=== PATIENT | male | born 1975 | race Two or more races ===

== ENCOUNTER 2023-04-07 14:31 | Inpatient (IN) | payer BC ==
[2023-04-07 16:36] VITALS: BMI 25.0
[2023-04-07] MEDS ORDERED: MAGNESIUM HYDROX 2400MG/30ML ORAL SUSPENSION 30 ML CUP PO PRN (18:30)
[2023-04-07] MEDS ORDERED: BENZONATATE 200 MG CAPSULE PO PRN (18:30)
[2023-04-07] MEDS ORDERED: BENZOCAINE/MENTHOL (CHLORASEPTIC ) LOZENGE MM PRN (18:30)
[2023-04-07] MEDS ORDERED: P-EPHED 60MG/TRIPROLIDI 2.5MG TABLET PO PRN (18:30)
[2023-04-07] MEDS ORDERED: MAG HYDROX/AL HYDROX/SIMETH 30 ML UNIT-DOSE CUP PO PRN (18:30)
[2023-04-07] MEDS ORDERED: AMMONIUM LACTATE 12% LOTION 225 GM BOTTLE TP PRN (18:30)
[2023-04-07] MEDS ORDERED: IBUPROFEN 400 MG TABLET (FP) PO PRN (18:30)
[2023-04-07] MEDS ORDERED: LOPERAMIDE HCL 2 MG CAPSULE PO PRN (18:30)
[2023-04-07] MEDS ORDERED: POLYETHYLENE GLYCOL (HEALTHYLAX) 3350 17 GM PACKET PO PRN (18:30)
[2023-04-07] MEDS ORDERED: IBUPROFEN 600 MG TABLET (FP) PO PRN (18:30)
[2023-04-07] MEDS ORDERED: hydrOXYzine PAMOATE 25 MG CAPSULE (FP) PO PRN (18:30)
[2023-04-07] MEDS ORDERED: guaiFENesin 600 MG TABLET.ER (FP) PO PRN (18:30)
[2023-04-07] MEDS ORDERED: COLLOIDAL OATMEAL 1 BAR EACH TP PRN (18:30)
[2023-04-07] MEDS ORDERED: ACETAMINOPHEN 325 MG TABLET (FP) PO PRN (18:30)
[2023-04-07] MEDS ORDERED: TUBERCULIN PPD 5 TU/0.1ML SYRINGE (IN PATIENT USE ONLY) ID ONE (19:45)
[2023-04-07] MEDS ORDERED: TUBERCULIN PPD 5 TU/0.1ML VIAL ID ONE (20:39)
[2023-04-07] MEDS: NICOTINE 10 MG CARTRIDGE (INHALER) IH PRN (21:34)
[2023-04-07] MEDS: THIAMINE HCL 100 MG TABLET (FP) PO SCH (21:34)
[2023-04-07] MEDS: MELATONIN 5 MG TABLETS PO SCH (21:34)
[2023-04-07] MEDS: LIDOCAINE PATCH REMOVAL MC SCH (21:36)
[2023-04-08] MEDS: LIDOCAINE 5% TOPICAL PATCH TP SCH (09:28)
[2023-04-08] MEDS: PRENATAL VITAMINS W/ FOLIC ACID TABLET (FP) PO SCH (09:28)
[2023-04-08] MEDS: NICOTINE 10 MG CARTRIDGE (INHALER) IH PRN ×2 (09:29→19:33)
[2023-04-08 11:31] LABS: POTASSIUM 4.5 mmol/L (3.5-5.1)
[2023-04-08 11:32] LABS: HEMATOCRIT 42.1 % (35.4-49); HEMOGLOBIN 14.2 GM/dL (11.7-16.9); MCH 29.8 pg (25.7-33.7); MCHC 33.6 g/dl (32.0-35.9); MEAN CELL VOLUME 88.7 fl (80-96); MEAN PLT VOLUME 7.4 fl (7.5-11.1); PLATELET COUNT 299 10^3/uL (134-434); RBC 4.75 M/mm3 (4.00-5.60); RDW 13.9 % (11.9-15.9); WHITE BLOOD COUNT 6.4 K/mm3 (4.0-10.0)
[2023-04-08 11:33] LABS: ALBUMIN 3.8 g/dl (3.4-5.0); BLOOD UREA NITROGEN 14.9 mg/dL (7-18); CALCIUM 9.1 mg/dL (8.5-10.1)
[2023-04-08 11:36] LABS: CREATININE 1.3 mg/dL (0.55-1.3)
[2023-04-08 11:37] LABS: PH,URINE 5.5 (5.0-8.0); URINE APPEARANCE CLEAR; URINE BILIRUBIN NEGATIVE (NEGATIVE); URINE COLOR YELLOW; URINE GLUCOSE (UA) NEGATIVE (NEGATIVE); URINE KETONE NEGATIVE (NEGATIVE); URINE LEUK ESTERASE NEGATIVE (NEGATIVE); URINE NITRITE NEGATIVE (NEGATIVE); URINE PROTEIN NEGATIVE (NEGATIVE); URINE UROBILINOGEN 0.2 mg/dL (0.2-1.0)
[2023-04-08 11:38] LABS: BILIRUBIN,TOTAL 1.2 mg/dL (0.2-1); TOT PROT 7.9 g/dl (6.4-8.2)
[2023-04-08 11:58] LABS: SYPHILIS W/ RPR CONF NON-REACTIVE (NONREACTIVE)
[2023-04-08] MEDS: NICOTINE 21 MG/24 HOURS TOPICAL PATCH TD SCH (12:36)
[2023-04-08] MEDS: THIAMINE HCL 100 MG TABLET (FP) PO SCH (21:02)
[2023-04-08] MEDS: MELATONIN 5 MG TABLETS PO SCH (21:03)
[2023-04-08] MEDS: traZODone HCL 100 MG TABLET (FP) PO SCH (21:03)
[2023-04-08] MEDS: LIDOCAINE PATCH REMOVAL MC SCH (21:03)
[2023-04-09] MEDS: NICOTINE 10 MG CARTRIDGE (INHALER) IH PRN ×3 (06:42→21:36)
[2023-04-09] MEDS: PRENATAL VITAMINS W/ FOLIC ACID TABLET (FP) PO SCH (10:34)
[2023-04-09] MEDS: NICOTINE 21 MG/24 HOURS TOPICAL PATCH TD SCH (10:34)
[2023-04-09] MEDS: LIDOCAINE 5% TOPICAL PATCH TP SCH (10:34)
[2023-04-09] MEDS: THIAMINE HCL 100 MG TABLET (FP) PO SCH (21:34)
[2023-04-09] MEDS: traZODone HCL 100 MG TABLET (FP) PO SCH (21:34)
[2023-04-09] MEDS: LIDOCAINE PATCH REMOVAL MC SCH (21:35)
[2023-04-09] MEDS: MELATONIN 5 MG TABLETS PO SCH (21:35)
[2023-04-10] MEDS: NICOTINE 21 MG/24 HOURS TOPICAL PATCH TD SCH (09:56)
[2023-04-10] MEDS: PRENATAL VITAMINS W/ FOLIC ACID TABLET (FP) PO SCH (09:56)
[2023-04-10] MEDS: LIDOCAINE 5% TOPICAL PATCH TP SCH (09:56)
[2023-04-10] MEDS: NICOTINE 10 MG CARTRIDGE (INHALER) IH PRN ×3 (09:57→21:32)
[2023-04-10] MEDS: traZODone HCL 100 MG TABLET (FP) PO SCH (21:32)
[2023-04-10] MEDS: THIAMINE HCL 100 MG TABLET (FP) PO SCH (21:32)
[2023-04-10] MEDS: LIDOCAINE PATCH REMOVAL MC SCH (21:32)
[2023-04-10] MEDS: MELATONIN 5 MG TABLETS PO SCH (21:49)
[2023-04-11] MEDS: NICOTINE 10 MG CARTRIDGE (INHALER) IH PRN ×4 (06:52→21:52)
[2023-04-11] MEDS: PRENATAL VITAMINS W/ FOLIC ACID TABLET (FP) PO SCH (10:35)
[2023-04-11] MEDS: NICOTINE 21 MG/24 HOURS TOPICAL PATCH TD SCH (10:35)
[2023-04-11] MEDS: LIDOCAINE 5% TOPICAL PATCH TP SCH (10:36)
[2023-04-11] MEDS: traZODone HCL 100 MG TABLET (FP) PO SCH (21:50)
[2023-04-11] MEDS: THIAMINE HCL 100 MG TABLET (FP) PO SCH (21:51)
[2023-04-11] MEDS: MELATONIN 5 MG TABLETS PO SCH (21:51)
[2023-04-11] MEDS: LIDOCAINE PATCH REMOVAL MC SCH (21:52)
[2023-04-12] MEDS: NICOTINE 10 MG CARTRIDGE (INHALER) IH PRN ×4 (06:27→21:32)
[2023-04-12] MEDS: PRENATAL VITAMINS W/ FOLIC ACID TABLET (FP) PO SCH (09:42)
[2023-04-12] MEDS: NICOTINE 21 MG/24 HOURS TOPICAL PATCH TD SCH (09:42)
[2023-04-12] MEDS: LIDOCAINE 5% TOPICAL PATCH TP SCH (10:48)
[2023-04-12] MEDS: traZODone HCL 100 MG TABLET (FP) PO SCH (21:32)
[2023-04-12] MEDS: MELATONIN 5 MG TABLETS PO SCH (21:32)
[2023-04-12] MEDS: THIAMINE HCL 100 MG TABLET (FP) PO SCH (21:32)
[2023-04-12] MEDS: LIDOCAINE PATCH REMOVAL MC SCH (21:32)
[2023-04-13] MEDS: NICOTINE 10 MG CARTRIDGE (INHALER) IH PRN ×4 (06:23→19:07)
[2023-04-13] MEDS: LIDOCAINE 5% TOPICAL PATCH TP SCH (10:11)
[2023-04-13] MEDS: PRENATAL VITAMINS W/ FOLIC ACID TABLET (FP) PO SCH (10:11)
[2023-04-13] MEDS: NICOTINE 21 MG/24 HOURS TOPICAL PATCH TD SCH (10:11)
[2023-04-13] MEDS: LIDOCAINE PATCH REMOVAL MC SCH (21:21)
[2023-04-13] MEDS: THIAMINE HCL 100 MG TABLET (FP) PO SCH (21:21)
[2023-04-13] MEDS: MELATONIN 5 MG TABLETS PO SCH (21:21)
[2023-04-13] MEDS: traZODone HCL 100 MG TABLET (FP) PO SCH (21:22)
[2023-04-14] MEDS: NICOTINE 10 MG CARTRIDGE (INHALER) IH PRN ×5 (06:46→21:12)
[2023-04-14] MEDS: PRENATAL VITAMINS W/ FOLIC ACID TABLET (FP) PO SCH (09:54)
[2023-04-14] MEDS: LIDOCAINE 5% TOPICAL PATCH TP SCH (09:54)
[2023-04-14] MEDS: NICOTINE 21 MG/24 HOURS TOPICAL PATCH TD SCH (09:54)
[2023-04-14] MEDS: THIAMINE HCL 100 MG TABLET (FP) PO SCH (21:11)
[2023-04-14] MEDS: MELATONIN 5 MG TABLETS PO SCH (21:11)
[2023-04-14] MEDS: traZODone HCL 100 MG TABLET (FP) PO SCH (21:11)
[2023-04-14] MEDS: LIDOCAINE PATCH REMOVAL MC SCH (21:12)
[2023-04-15] MEDS: NICOTINE 10 MG CARTRIDGE (INHALER) IH PRN ×4 (06:54→21:21)
[2023-04-15] MEDS: LIDOCAINE 5% TOPICAL PATCH TP SCH (10:49)
[2023-04-15] MEDS: NICOTINE 21 MG/24 HOURS TOPICAL PATCH TD SCH (10:49)
[2023-04-15] MEDS: PRENATAL VITAMINS W/ FOLIC ACID TABLET (FP) PO SCH (10:49)
[2023-04-15] MEDS: INSULIN SLIDING SCALE (NOVOLOG) 1 VIAL SQ SCH (16:35)
[2023-04-15] MEDS: THIAMINE HCL 100 MG TABLET (FP) PO SCH (21:20)
[2023-04-15] MEDS: MELATONIN 5 MG TABLETS PO SCH (21:20)
[2023-04-15] MEDS: traZODone HCL 100 MG TABLET (FP) PO SCH (21:20)
[2023-04-15] MEDS: LIDOCAINE PATCH REMOVAL MC SCH (21:21)
[2023-04-16] MEDS: INSULIN SLIDING SCALE (NOVOLOG) 1 VIAL SQ SCH ×2 (06:34→17:08)
[2023-04-16] MEDS: NICOTINE 21 MG/24 HOURS TOPICAL PATCH TD SCH (10:22)
[2023-04-16] MEDS: PRENATAL VITAMINS W/ FOLIC ACID TABLET (FP) PO SCH (10:22)
[2023-04-16] MEDS: LIDOCAINE 5% TOPICAL PATCH TP SCH (10:22)
[2023-04-16] MEDS: NICOTINE POLACRILEX 2 MG GUM BUC PRN (10:23)
[2023-04-16] MEDS: NICOTINE 10 MG CARTRIDGE (INHALER) IH PRN ×4 (10:26→22:16)
[2023-04-16] MEDS: traZODone HCL 100 MG TABLET (FP) PO SCH (21:07)
[2023-04-16] MEDS: LIDOCAINE PATCH REMOVAL MC SCH (21:07)
[2023-04-16] MEDS: MELATONIN 5 MG TABLETS PO SCH (21:07)
[2023-04-16] MEDS: THIAMINE HCL 100 MG TABLET (FP) PO SCH (21:08)
[2023-04-17] MEDS: NICOTINE 10 MG CARTRIDGE (INHALER) IH PRN ×5 (06:42→21:58)
[2023-04-17] MEDS: INSULIN SLIDING SCALE (NOVOLOG) 1 VIAL SQ SCH ×2 (07:34→17:24)
[2023-04-17] MEDS ORDERED: INSULIN SLIDING SCALE (NOVOLOG) 1 VIAL SQ ONE (07:39)
[2023-04-17] MEDS: NICOTINE 21 MG/24 HOURS TOPICAL PATCH TD SCH (10:18)
[2023-04-17] MEDS: PRENATAL VITAMINS W/ FOLIC ACID TABLET (FP) PO SCH (10:18)
[2023-04-17] MEDS: LIDOCAINE 5% TOPICAL PATCH TP SCH (10:19)
[2023-04-17] MEDS: NICOTINE POLACRILEX 2 MG GUM BUC PRN (14:38)
[2023-04-17] MEDS: THIAMINE HCL 100 MG TABLET (FP) PO SCH (21:57)
[2023-04-17] MEDS: LIDOCAINE PATCH REMOVAL MC SCH (21:57)
[2023-04-17] MEDS: MELATONIN 5 MG TABLETS PO SCH (21:57)
[2023-04-17] MEDS: traZODone HCL 100 MG TABLET (FP) PO SCH (21:57)
[2023-04-18] MEDS: INSULIN SLIDING SCALE (NOVOLOG) 1 VIAL SQ SCH ×2 (06:23→16:46)
[2023-04-18] MEDS: NICOTINE 10 MG CARTRIDGE (INHALER) IH PRN ×5 (06:23→21:36)
[2023-04-18] MEDS: LIDOCAINE 5% TOPICAL PATCH TP SCH (09:24)
[2023-04-18] MEDS: PRENATAL VITAMINS W/ FOLIC ACID TABLET (FP) PO SCH (09:25)
[2023-04-18] MEDS: NICOTINE 21 MG/24 HOURS TOPICAL PATCH TD SCH (09:25)
[2023-04-18] MEDS: THIAMINE HCL 100 MG TABLET (FP) PO SCH (21:35)
[2023-04-18] MEDS: MELATONIN 5 MG TABLETS PO SCH (21:35)
[2023-04-18] MEDS: LIDOCAINE PATCH REMOVAL MC SCH (21:35)
[2023-04-18] MEDS: traZODone HCL 100 MG TABLET (FP) PO SCH (21:35)
[2023-04-19] MEDS: INSULIN SLIDING SCALE (NOVOLOG) 1 VIAL SQ SCH ×2 (06:41→16:30)
[2023-04-19] MEDS: NICOTINE 10 MG CARTRIDGE (INHALER) IH PRN ×4 (06:42→16:31)
[2023-04-19 06:55] VITALS: RESP 18
[2023-04-19] MEDS: PRENATAL VITAMINS W/ FOLIC ACID TABLET (FP) PO SCH (10:04)
[2023-04-19] MEDS: LIDOCAINE 5% TOPICAL PATCH TP SCH (10:05)
[2023-04-19] MEDS: NICOTINE 21 MG/24 HOURS TOPICAL PATCH TD SCH (10:05)
[2023-04-19] MEDS: THIAMINE HCL 100 MG TABLET (FP) PO SCH (21:50)
[2023-04-19] MEDS: traZODone HCL 100 MG TABLET (FP) PO SCH (21:50)
[2023-04-19] MEDS: MELATONIN 5 MG TABLETS PO SCH (21:50)
[2023-04-19] MEDS: LIDOCAINE PATCH REMOVAL MC SCH (21:51)
[2023-04-20] MEDS: NICOTINE 10 MG CARTRIDGE (INHALER) IH PRN ×5 (05:58→21:14)
[2023-04-20] MEDS: INSULIN SLIDING SCALE (NOVOLOG) 1 VIAL SQ SCH ×2 (06:53→16:26)
[2023-04-20] MEDS: LIDOCAINE 5% TOPICAL PATCH TP SCH (10:44)
[2023-04-20] MEDS: PRENATAL VITAMINS W/ FOLIC ACID TABLET (FP) PO SCH (10:44)
[2023-04-20] MEDS: NICOTINE 21 MG/24 HOURS TOPICAL PATCH TD SCH (10:44)
[2023-04-20] MEDS ORDERED: HYDROCORTISONE 1% TOPICAL CREAM 30 GM TUBE TP PRN (14:05)
[2023-04-20] MEDS: THIAMINE HCL 100 MG TABLET (FP) PO SCH (21:14)
[2023-04-20] MEDS: traZODone HCL 100 MG TABLET (FP) PO SCH (21:14)
[2023-04-20] MEDS: MELATONIN 5 MG TABLETS PO SCH (21:14)
[2023-04-20] MEDS: LIDOCAINE PATCH REMOVAL MC SCH (21:14)
[2023-04-21] MEDS: INSULIN SLIDING SCALE (NOVOLOG) 1 VIAL SQ SCH ×2 (06:55→16:17)
[2023-04-21] MEDS: NICOTINE 10 MG CARTRIDGE (INHALER) IH PRN ×5 (06:56→21:33)
[2023-04-21] MEDS: LIDOCAINE 5% TOPICAL PATCH TP SCH (10:09)
[2023-04-21] MEDS: NICOTINE 21 MG/24 HOURS TOPICAL PATCH TD SCH (10:10)
[2023-04-21] MEDS: PRENATAL VITAMINS W/ FOLIC ACID TABLET (FP) PO SCH (10:10)
[2023-04-21] MEDS: LIDOCAINE PATCH REMOVAL MC SCH (21:33)
[2023-04-21] MEDS: traZODone HCL 100 MG TABLET (FP) PO SCH (21:33)
[2023-04-21] MEDS: MELATONIN 5 MG TABLETS PO SCH (21:33)
[2023-04-21] MEDS: THIAMINE HCL 100 MG TABLET (FP) PO SCH (21:33)
[2023-04-22] MEDS: INSULIN SLIDING SCALE (NOVOLOG) 1 VIAL SQ SCH (06:52)
[2023-04-22] MEDS ORDERED: INSULIN SLIDING SCALE (NOVOLOG) 1 VIAL SQ ONE (06:53)
[2023-04-22] MEDS: NICOTINE 10 MG CARTRIDGE (INHALER) IH PRN (06:54)
[2023-04-22 06:56] VITALS: TEMP 97.7
[2023-04-22 09:13] VITALS: BP 117/75; PULSE 100
[2023-04-22] MEDS: NICOTINE 21 MG/24 HOURS TOPICAL PATCH TD SCH (09:26)
[2023-04-22] MEDS: LIDOCAINE 5% TOPICAL PATCH TP SCH (09:26)
[2023-04-22] MEDS: PRENATAL VITAMINS W/ FOLIC ACID TABLET (FP) PO SCH (09:26)
== END 2023-04-22 09:30 | disposition home or self-care (01) | DRG 772 ==
LOC: YASAS 14:31 → Y3W 19:35
PROVIDERS: ADMIT Allergy & Immunology; ATTEND Psychiatry & Neurology Pain Medicine
PROC: HZ42ZZZ Group Counseling for Substance Abuse Treatment, Cognitive-Behavioral (ICD-10-PCS; principal; 2023-04-07)
DX: F10.20 Alcohol dependence, uncomplicated (principal); F17.210 Nicotine dependence, cigarettes, uncomplicated; F19.282 Other psychoactive substance dependence with psychoactive substance-induced sleep disorder; G47.00 Insomnia, unspecified; L85.3 Xerosis cutis; R21 Rash and other nonspecific skin eruption; R73.03 Prediabetes
CPT/HCPCS: 36415; 80053; 81003; 82962; 85027; 86780; 86803; 87635